=== PATIENT | male | born 1950 | race Two or more races ===

== ENCOUNTER 2018-05-26 07:59 | Day surgery (SDC) | payer OTHER ==
[~2018-05-26] VITALS: Ht 180.3 cm; Wt 119.3 kg
[~2018-05-26 07:59] MED LIST: ALBUPOW26 XX; ASPI81CH43 PO; ATOR40TA52 PO; CLOP75TA41 PO; DOXA4TAB40 PO; FENO160T8 PO; FINA5TAB4 PO; GABA300C10 PO; INSU75IN2 SC; LEVO100T8 PO; LISI40TA PO; NIFE90TA30 PO; NORT10SO PO; OMEP20TA44 PO
[2018-05-26] MEDS ORDERED: LIDOCAINE 2% (LOCAL ANESTH.) PF 5ml SDV ONE (09:35)
[2018-05-26] MEDS ORDERED: IODIXANOL 320MG/ML 100ML BTL IV ONE ×3 (09:36→10:10)
[2018-05-26] MEDS ORDERED: MIDAZOLAM HCL 1MG/1ML-2 ML VIAL ONE (09:48)
[2018-05-26] MEDS ORDERED: ANGIOMAX 250 MG VIAL IV ONE (09:48)
[2018-05-26] MEDS ORDERED: fentaNYL CITRATE 100 MCG/2 ML VL ONE (09:48)
[2018-05-26] MEDS ORDERED: SODIUM CHL 0.9% 50 ML ONE (09:48)
[2018-05-26] MEDS ORDERED: VERAPAMIL 2.5MG/ML INJ 2ML VIAL IV ONE (09:50)
== END 2018-05-26 14:25 | disposition home or self-care (01) ==
LOC: CATH 07:59
PROVIDERS: ATTEND Internal Medicine
DX: I70.92 Chronic total occlusion of artery of the extremities (principal); E66.9 Obesity, unspecified; I10 Essential (primary) hypertension; I65.29 Occlusion and stenosis of unspecified carotid artery; I50.30 Unspecified diastolic (congestive) heart failure; I77.9 Disorder of arteries and arterioles, unspecified; E11.22 Type 2 diabetes mellitus with diabetic chronic kidney disease; I13.0 Hypertensive heart and chronic kidney disease with heart failure and stage 1 through stage 4 chronic kidney disease, or unspecified chronic kidney disease; N18.9 Chronic kidney disease, unspecified; I25.119 Atherosclerotic heart disease of native coronary artery with unspecified angina pectoris; E78.5 Hyperlipidemia, unspecified; J45.909 Unspecified asthma, uncomplicated; Z68.36 Body mass index [BMI] 36.0-36.9, adult; Z83.3 Family history of diabetes mellitus; Z79.899 Other long term (current) drug therapy; Z86.73 Personal history of transient ischemic attack (TIA), and cerebral infarction without residual deficits; Z87.891 Personal history of nicotine dependence
CPT/HCPCS: 36247; 37224; 75710; 76937; 93005; C1769; C1887; C1894; J0583; J1644; J2250; J3010; J7030; Q9967; 99152; 99153; A6257; J2001

== ENCOUNTER 2021-08-23 12:39 | Inpatient (IN) | payer OTHER ==
[~2021-08-23] VITALS: Ht 180.3 cm; Wt 126.1 kg
[~2021-08-23 12:39] MED LIST changes: -CLOP75TA41 PO; +CLOP75TA70 PO; -DOXA4TAB40 PO; +DOXA4TAB6 PO; -LISI40TA PO; +LISI40TA11 PO; -NIFE90TA30 PO; +NIFE90TA49 PO
[2021-08-23] MEDS ORDERED: FUROSEMIDE 40 MG/4 ML VIAL IV ONE (13:15)
[2021-08-23 14:02] LABS: Basophils # (auto) 0 10 ^3/uL (0-0.2); Basophils % (auto) 0.7 % (0.0-2.0); Eosinophils # (auto) 0.2 10 ^3/uL (0-0.8); Eosinophils % (auto) 2.8 % (0.0-7.0); Hematocrit 39.6 % (41.0-53.0); Hemoglobin 12.9 g/dL (13.5-17.5); Mean Corpuscular Hemoglobin 30.6 pg (28.0-32.0); Mean Corpuscular Hgb Conc. 32.6 g/dL (32.0-36.0); Mean Corpuscular Volume 94.1 fL (80.0-100.0); Monocytes # (auto) 0.5 10 ^3/uL (0-1.3); Monocytes % (auto) 9.8 % (0.0-12.0); Neutrophils # (auto) 3.9 10 ^3/uL (1.6-8.6); Neutrophils % (auto) 68.7 % (37.0-80.0); Nucleated Red Blood Cells % 0.3 %; Red Blood Cells 4.21 10^6/uL (4.5-5.90); Red Cell Distribution Width 15.6 % (11.8-14.3); White Blood Cell 5.6 10^3/uL (4.4-10.8)
[2021-08-23 14:23] LABS: Albumin 3.5 g/dL (3.4-5.0); Calcium 9.2 mg/dL (8.5-10.1); Magnesium 2.2 mg/dL (1.6-2.6); Potassium 4.7 mmol/L (3.5-5.1)
[2021-08-23 14:27] LABS: BUN/Creatinine Ratio 16.9; Bilirubin, Total 0.4 mg/dL (0.2-1.0); Total Protein 6.8 g/dL (6.4-8.2)
[2021-08-23] MEDS ORDERED: NITROGLYCERIN 0.4 MG SL TAB SL PRN ×2 (19:30→20:15)
[2021-08-23] MEDS ORDERED: MORPHINE SULFATE INJECTION 2 MG/ML SYRG IV PRN ×3 (19:30→20:15)
[2021-08-23] MEDS ORDERED: DOCUSATE SOD 100 MG CAP PO PRN (20:15)
[2021-08-23] MEDS ORDERED: DEXTROSE (50%) 50ML SYRG IV PRN (20:15)
[2021-08-23] MEDS ORDERED: hydrALAZINE HCL 20 MG/ML VL IV PRN (20:15)
[2021-08-23] MEDS ORDERED: ALUM & MAG HYDROX-SIMETH LIQ(MAALOX) 30 ML PO PRN (20:15)
[2021-08-23] MEDS ORDERED: HYDROcodone-ACET 5/325MG TAB PO PRN (20:15)
[2021-08-23] MEDS ORDERED: LORazepam 0.5 MG TAB PO PRN (20:15)
[2021-08-23 21:02] LABS: Magnesium 2.1 mg/dL (1.6-2.6); Phosphorus 4.9 mg/dL (2.5-4.90)
[2021-08-23] MEDS ORDERED: cefTRIAXone 1GM/50ML D5W 50 ML IV ONE (21:15)
[2021-08-23] MEDS: SODIUM CHLOR 0.9% PF (SALINE LOCK) 10ML VIAL/SYR IV SCH (21:59)
[2021-08-23] MEDS ORDERED: CLINDAMYCIN 600MG IV 50 ML IV ONE (22:00)
[2021-08-23] MEDS ORDERED: METOCLOPRAMIDE HCL 5MG/ml INJ 2ml VIAL IV PRN (22:00)
[2021-08-23 22:20] LABS: Urine WBC None Seen /hpf (0 - 3)
[2021-08-23 22:24] LABS: Urine Bacteria NONE SEEN /hpf (None Seen); Urine Blood Negative /uL (Negative); Urine Hyaline Cast FEW /lpf (0 - 2); Urine Specific Gravity 1.007 (1.001-1.035)
[2021-08-23] MEDS: FAMOTIDINE (10MG/ML) 2ML VL IV SCH (22:37)
[2021-08-23] MEDS: DOXAZOSIN MESYL 2 MG TAB PO SCH (22:38)
[2021-08-23] MEDS: GABAPENTIN 300 MG CAP PO SCH (22:39)
[2021-08-23] MEDS: ATORVASTATIN 20 MG TAB PO SCH (22:39)
[2021-08-23] MEDS: ACCU-CHEK COMFORT CURVE STRIP VI SCH (22:39)
[2021-08-23] MEDS: InsuLIN REG 1unit/0.01ml Soln (100units/ml) SC SCH (22:40)
[2021-08-24] MEDS: CLINDAMYCIN 600MG IV 50 ML IV SCH ×3 (07:03→22:27)
[2021-08-24] MEDS: GABAPENTIN 300 MG CAP PO SCH ×3 (07:04→22:28)
[2021-08-24] MEDS: FUROSEMIDE 40 MG/4 ML VIAL IV SCH ×2 (07:04→18:07)
[2021-08-24] MEDS: SODIUM CHLOR 0.9% PF (SALINE LOCK) 10ML VIAL/SYR IV SCH ×3 (07:04→22:27)
[2021-08-24] MEDS: InsuLIN REG 1unit/0.01ml Soln (100units/ml) SC SCH ×4 (07:30→22:27)
[2021-08-24] MEDS: LEVOTHYROXINE SODIUM 100 MCG TAB PO SCH (07:30)
[2021-08-24] MEDS: ACCU-CHEK COMFORT CURVE STRIP VI SCH ×4 (07:30→22:16)
[2021-08-24] MEDS: ASPirin 81 mg TAB PO SCH (09:27)
[2021-08-24] MEDS: POTASSIUM CHL 20 Meq TABLET PO SCH (09:27)
[2021-08-24] MEDS: FINASTERIDE 5 MG TAB PO SCH (09:28)
[2021-08-24] MEDS ORDERED: ENOXAPARIN SOD 40 MG/0.4 ML SYRINGE SC SCH (10:00)
[2021-08-24] MEDS ORDERED: CLOPIDOGREL BISULFATE 75 MG TAB PO SCH (10:00)
[2021-08-24] MEDS ORDERED: BENAZEPRIL HCL 10 MG TAB PO SCH (10:00)
[2021-08-24 13:05] VITALS: BP 105/49
[2021-08-24 16:46] LABS: Basophils # (auto) 0 10 ^3/uL (0-0.2); Basophils % (auto) 0.7 % (0.0-2.0); Eosinophils # (auto) 0.2 10 ^3/uL (0-0.8); Eosinophils % (auto) 3.9 % (0.0-7.0); Hematocrit 41.4 % (41.0-53.0); Hemoglobin 13.6 g/dL (13.5-17.5); Lymphocytes # (auto) 0.9 10 ^3/uL (0.4-5.4); Lymphocytes % (auto) 17.3 % (10.0-50.0); Mean Corpuscular Hemoglobin 30.8 pg (28.0-32.0); Mean Corpuscular Hgb Conc. 32.8 g/dL (32.0-36.0); Mean Corpuscular Volume 93.8 fL (80.0-100.0); Monocytes # (auto) 0.5 10 ^3/uL (0-1.3); Monocytes % (auto) 9.3 % (0.0-12.0); Neutrophils # (auto) 3.7 10 ^3/uL (1.6-8.6); Neutrophils % (auto) 68.8 % (37.0-80.0); Nucleated Red Blood Cells % 0.1 %; Red Blood Cells 4.41 10^6/uL (4.5-5.90); Red Cell Distribution Width 15.3 % (11.8-14.3); White Blood Cell 5.4 10^3/uL (4.4-10.8)
[2021-08-24 16:56] VITALS: BP 135/82
[2021-08-24] MEDS ORDERED: CHLO50TA PO (17:00)
[2021-08-24] MEDS ORDERED: INS7030I SC ×2 (17:00)
[2021-08-24] MEDS ORDERED: DOXA4TAB6 PO (17:00)
[2021-08-24] MEDS ORDERED: BENA40TA8 PO (17:00)
[2021-08-24 17:07] LABS: BUN/Creatinine Ratio 17.4; Calcium 9.6 mg/dL (8.5-10.1); Potassium 5.2 mmol/L (3.5-5.1)
[2021-08-24 18:35] VITALS: BP 138/88
[2021-08-24] MEDS ORDERED: SODIUM ZIRCONIUM CYCL 10 GM PAK PO ONE (19:00)
[2021-08-24] MEDS: cefTRIAXone 1GM/50ML D5W 50 ML IV SCH (21:01)
[2021-08-24 22:00] VITALS: BP 139/83
[2021-08-24] MEDS: FAMOTIDINE (10MG/ML) 2ML VL IV SCH (22:27)
[2021-08-24] MEDS: APIXABAN 5 MG TAB PO SCH (22:27)
[2021-08-24] MEDS: DOXAZOSIN MESYL 2 MG TAB PO SCH (22:27)
[2021-08-24] MEDS: ATORVASTATIN 20 MG TAB PO SCH (22:28)
[2021-08-25 04:50] VITALS: BP 139/78
[2021-08-25] MEDS: FUROSEMIDE 40 MG/4 ML VIAL IV SCH ×2 (05:58→19:10)
[2021-08-25] MEDS: CLINDAMYCIN 600MG IV 50 ML IV SCH ×2 (05:58→14:06)
[2021-08-25] MEDS: SODIUM CHLOR 0.9% PF (SALINE LOCK) 10ML VIAL/SYR IV SCH ×3 (05:58→21:40)
[2021-08-25] MEDS: GABAPENTIN 300 MG CAP PO SCH ×3 (05:59→21:40)
[2021-08-25] MEDS: LEVOTHYROXINE SODIUM 100 MCG TAB PO SCH (06:00)
[2021-08-25] MEDS: InsuLIN REG 1unit/0.01ml Soln (100units/ml) SC SCH ×4 (06:10→21:40)
[2021-08-25] MEDS: ACCU-CHEK COMFORT CURVE STRIP VI SCH ×4 (06:10→21:36)
[2021-08-25 08:05] LABS: Basophils # (auto) 0 10 ^3/uL (0-0.2); Basophils % (auto) 0.6 % (0.0-2.0); Eosinophils # (auto) 0.2 10 ^3/uL (0-0.8); Eosinophils % (auto) 3.8 % (0.0-7.0); Hematocrit 39.9 % (41.0-53.0); Hemoglobin 13.2 g/dL (13.5-17.5); Lymphocytes # (auto) 1.2 10 ^3/uL (0.4-5.4); Lymphocytes % (auto) 20.7 % (10.0-50.0); Mean Corpuscular Hemoglobin 31.1 pg (28.0-32.0); Mean Corpuscular Hgb Conc. 33.2 g/dL (32.0-36.0); Mean Corpuscular Volume 93.6 fL (80.0-100.0); Monocytes # (auto) 0.7 10 ^3/uL (0-1.3); Monocytes % (auto) 12.1 % (0.0-12.0); Neutrophils # (auto) 3.7 10 ^3/uL (1.6-8.6); Neutrophils % (auto) 62.8 % (37.0-80.0); Nucleated Red Blood Cells % 0.1 %; Red Blood Cells 4.27 10^6/uL (4.5-5.90); Red Cell Distribution Width 15.2 % (11.8-14.3); White Blood Cell 5.8 10^3/uL (4.4-10.8)
[2021-08-25 08:08] LABS: Calcium 9.5 mg/dL (8.5-10.1); Potassium 4.4 mmol/L (3.5-5.1)
[2021-08-25 08:12] LABS: BUN/Creatinine Ratio 18.4
[2021-08-25 09:00] VITALS: BP 146/78
[2021-08-25] MEDS ORDERED: CLOPIDOGREL BISULFATE 75 MG TAB PO SCH (10:00)
[2021-08-25] MEDS ORDERED: NIFEdipine ER 30 MG TAB PO SCH (10:00)
[2021-08-25] MEDS: POTASSIUM CHL 20 Meq TABLET PO SCH (11:04)
[2021-08-25] MEDS: FINASTERIDE 5 MG TAB PO SCH (11:04)
[2021-08-25] MEDS: BENAZEPRIL HCL 10 MG TAB PO SCH (11:05)
[2021-08-25] MEDS: ASPirin 81 mg TAB PO SCH (11:06)
[2021-08-25] MEDS: APIXABAN 5 MG TAB PO SCH (13:07)
[2021-08-25 13:13] VITALS: BP 146/79
[2021-08-25] MEDS: DOPamine 1600MCG/ML D5W 250 ML IV SCH ×2 (15:54→16:46)
[2021-08-25 17:15] VITALS: BP 130/66
[2021-08-25] MEDS: AZITHROMYCIN 500MG/ 250ML 250 ML IV SCH (19:11)
[2021-08-25] MEDS: FAMOTIDINE (10MG/ML) 2ML VL IV SCH (21:40)
[2021-08-25] MEDS: cefTRIAXone 1GM/50ML D5W 50 ML IV SCH (21:40)
[2021-08-25] MEDS: ATORVASTATIN 20 MG TAB PO SCH (21:40)
[2021-08-25] MEDS: DOXAZOSIN MESYL 2 MG TAB PO SCH (21:50)
[2021-08-25 22:11] VITALS: BP 133/69
[2021-08-25] MEDS ORDERED: DOPamine 1600MCG/ML D5W 250 ML IV SCH (23:30)
[2021-08-26] VITALS (9 sets, daily range): BP systolic 120–157; BP diastolic 71–90
[2021-08-26 01:52] LABS: INR 1.12 (0.9-1.15); Partial Thromboplastin Time 26.8 sec (23.6-33.0)
[2021-08-26] MEDS: GABAPENTIN 300 MG CAP PO SCH ×3 (06:13→21:23)
[2021-08-26] MEDS: FUROSEMIDE 40 MG/4 ML VIAL IV SCH ×2 (06:13→17:48)
[2021-08-26] MEDS: LEVOTHYROXINE SODIUM 100 MCG TAB PO SCH (06:13)
[2021-08-26] MEDS: SODIUM CHLOR 0.9% PF (SALINE LOCK) 10ML VIAL/SYR IV SCH ×3 (06:13→21:22)
[2021-08-26] MEDS: InsuLIN REG 1unit/0.01ml Soln (100units/ml) SC SCH ×4 (06:14→21:25)
[2021-08-26] MEDS: ACCU-CHEK COMFORT CURVE STRIP VI SCH ×4 (06:14→21:23)
[2021-08-26 06:38] LABS: Basophils # (auto) 0.1 10 ^3/uL (0-0.2); Eosinophils # (auto) 0.3 10 ^3/uL (0-0.8); Eosinophils % (auto) 4.9 % (0.0-7.0); Hematocrit 42.9 % (41.0-53.0); Hemoglobin 13.5 g/dL (13.5-17.5); Lymphocytes # (auto) 1.2 10 ^3/uL (0.4-5.4); Lymphocytes % (auto) 20.2 % (10.0-50.0); Mean Corpuscular Hemoglobin 30.7 pg (28.0-32.0); Mean Corpuscular Hgb Conc. 31.4 g/dL (32.0-36.0); Mean Corpuscular Volume 97.9 fL (80.0-100.0); Monocytes # (auto) 0.7 10 ^3/uL (0-1.3); Monocytes % (auto) 11.1 % (0.0-12.0); Neutrophils # (auto) 3.8 10 ^3/uL (1.6-8.6); Neutrophils % (auto) 62.8 % (37.0-80.0); Nucleated Red Blood Cells % 0.2 %; Red Blood Cells 4.38 10^6/uL (4.5-5.90); Red Cell Distribution Width 15.6 % (11.8-14.3)
[2021-08-26 07:10] LABS: BUN/Creatinine Ratio 19.5; Calcium 9.9 mg/dL (8.5-10.1); Potassium 4.2 mmol/L (3.5-5.1)
[2021-08-26] MEDS: AZITHROMYCIN 500MG/ 250ML 250 ML IV SCH (09:19)
[2021-08-26] MEDS: ASPirin 81 mg TAB PO SCH (09:45)
[2021-08-26] MEDS: POTASSIUM CHL 20 Meq TABLET PO SCH (09:46)
[2021-08-26] MEDS: FINASTERIDE 5 MG TAB PO SCH (09:46)
[2021-08-26] MEDS: BENAZEPRIL HCL 10 MG TAB PO SCH (09:46)
[2021-08-26] MEDS ORDERED: VANCOMYCIN HCL 1000 MG VL ONE (14:16)
[2021-08-26] MEDS ORDERED: MIDAZOLAM HCL 2MG/2ML 2ml VIAL (1mg/ml) ONE (14:17)
[2021-08-26] MEDS ORDERED: fentaNYL CITRATE 100 MCG/2 ML VL ONE (14:17)
[2021-08-26] MEDS ORDERED: VANCOMYCIN 1GM/250ML 250 ML IV ONE (14:17)
[2021-08-26] MEDS ORDERED: diphenhdrAMINE HCL 50 MG/1 ML VL ONE (14:19)
[2021-08-26] MEDS ORDERED: LIDOCAINE 2%HCL (LOCAL ANESTH.) INJ 20ML MDV ONE (14:26)
[2021-08-26] MEDS ORDERED: FUROSEMIDE 20 MG/2 ML VIAL ONE (14:52)
[2021-08-26] MEDS ORDERED: HYDROcodone-ACET 5/325MG TAB PO PRN (15:45)
[2021-08-26] MEDS: TAMSULOSIN HYDROCHLORIDE 0.4 MG CAP PO SCH (18:02)
[2021-08-26] MEDS: FAMOTIDINE (10MG/ML) 2ML VL IV SCH (21:22)
[2021-08-26] MEDS: cefTRIAXone 1GM/50ML D5W 50 ML IV SCH (21:22)
[2021-08-26] MEDS: ATORVASTATIN 20 MG TAB PO SCH (21:23)
[2021-08-27 05:00] VITALS: BP 130/75
[2021-08-27 06:12] LABS: Basophils # (auto) 0 10 ^3/uL (0-0.2); Basophils % (auto) 0.6 % (0.0-2.0); Eosinophils # (auto) 0.2 10 ^3/uL (0-0.8); Eosinophils % (auto) 3.6 % (0.0-7.0); Hematocrit 42.2 % (41.0-53.0); Hemoglobin 14.1 g/dL (13.5-17.5); Lymphocytes % (auto) 16.4 % (10.0-50.0); Mean Corpuscular Hemoglobin 30.4 pg (28.0-32.0); Mean Corpuscular Hgb Conc. 33.3 g/dL (32.0-36.0); Mean Corpuscular Volume 91.3 fL (80.0-100.0); Monocytes # (auto) 0.6 10 ^3/uL (0-1.3); Monocytes % (auto) 10.1 % (0.0-12.0); Neutrophils # (auto) 4.2 10 ^3/uL (1.6-8.6); Neutrophils % (auto) 69.3 % (37.0-80.0); Nucleated Red Blood Cells % 0.1 %; Red Blood Cells 4.63 10^6/uL (4.5-5.90); Red Cell Distribution Width 14.8 % (11.8-14.3)
[2021-08-27] MEDS: FUROSEMIDE 40 MG/4 ML VIAL IV SCH ×2 (06:17→18:10)
[2021-08-27] MEDS: InsuLIN REG 1unit/0.01ml Soln (100units/ml) SC SCH ×4 (06:18→21:47)
[2021-08-27] MEDS: SODIUM CHLOR 0.9% PF (SALINE LOCK) 10ML VIAL/SYR IV SCH ×3 (06:19→21:45)
[2021-08-27] MEDS: GABAPENTIN 300 MG CAP PO SCH ×3 (06:19→21:46)
[2021-08-27] MEDS: LEVOTHYROXINE SODIUM 100 MCG TAB PO SCH (06:19)
[2021-08-27] MEDS: ACCU-CHEK COMFORT CURVE STRIP VI SCH ×4 (06:19→21:46)
[2021-08-27 06:28] LABS: BUN/Creatinine Ratio 19.6; Potassium 4.1 mmol/L (3.5-5.1)
[2021-08-27 09:00] VITALS: BP 115/56
[2021-08-27] MEDS: FINASTERIDE 5 MG TAB PO SCH (09:45)
[2021-08-27] MEDS: BENAZEPRIL HCL 10 MG TAB PO SCH (09:45)
[2021-08-27] MEDS: AZITHROMYCIN 500MG/ 250ML 250 ML IV SCH (09:45)
[2021-08-27] MEDS: POTASSIUM CHL 20 Meq TABLET PO SCH (09:45)
[2021-08-27] MEDS: ASPirin 81 mg TAB PO SCH (09:45)
[2021-08-27 12:00] VITALS: BP 108/60
[2021-08-27 12:47] VITALS: BP 108/60
[2021-08-27 16:43] VITALS: BP 140/78
[2021-08-27] MEDS: TAMSULOSIN HYDROCHLORIDE 0.4 MG CAP PO SCH (18:10)
[2021-08-27] MEDS: ALBUTEROL SULF 2.5 MG/0.5ML(0.5%) NEB SOLN NEB SCH ×2 (19:19→21:58)
[2021-08-27] MEDS: ACETYLCYSTEINE 10 %(100MG/ML) SOL 4ML NEB SCH ×2 (19:19→21:58)
[2021-08-27] MEDS: cefTRIAXone 1GM/50ML D5W 50 ML IV SCH (21:45)
[2021-08-27] MEDS: FAMOTIDINE (10MG/ML) 2ML VL IV SCH (21:45)
[2021-08-27] MEDS: ATORVASTATIN 20 MG TAB PO SCH (21:46)
[2021-08-27 22:00] VITALS: BP 139/70
[2021-08-28] MEDS: ALBUTEROL SULF 2.5 MG/0.5ML(0.5%) NEB SOLN NEB SCH ×4 (02:32→15:34)
[2021-08-28] MEDS: ACETYLCYSTEINE 10 %(100MG/ML) SOL 4ML NEB SCH ×4 (02:32→14:00)
[2021-08-28 05:00] VITALS: BP 110/70
[2021-08-28] MEDS: SODIUM CHLOR 0.9% PF (SALINE LOCK) 10ML VIAL/SYR IV SCH ×2 (06:15→13:55)
[2021-08-28] MEDS: FUROSEMIDE 40 MG/4 ML VIAL IV SCH (06:15)
[2021-08-28] MEDS: LEVOTHYROXINE SODIUM 100 MCG TAB PO SCH (06:16)
[2021-08-28] MEDS: GABAPENTIN 300 MG CAP PO SCH ×2 (06:16→13:55)
[2021-08-28] MEDS: ACCU-CHEK COMFORT CURVE STRIP VI SCH ×3 (06:17→17:17)
[2021-08-28] MEDS: InsuLIN REG 1unit/0.01ml Soln (100units/ml) SC SCH ×3 (06:17→17:18)
[2021-08-28 09:00] VITALS: BP 122/92
[2021-08-28] MEDS: AZITHROMYCIN 500MG/ 250ML 250 ML IV SCH (09:25)
[2021-08-28] MEDS: POTASSIUM CHL 20 Meq TABLET PO SCH (09:25)
[2021-08-28] MEDS: ASPirin 81 mg TAB PO SCH (09:25)
[2021-08-28] MEDS: FINASTERIDE 5 MG TAB PO SCH (09:26)
[2021-08-28] MEDS: BENAZEPRIL HCL 10 MG TAB PO SCH (09:26)
[2021-08-28 12:59] VITALS: BP 133/82
[2021-08-28] MEDS ORDERED: TAM04C PO (15:32)
[2021-08-28] MEDS ORDERED: AMIO200T33 PO (15:32)
[2021-08-28] MEDS ORDERED: FURO1TAB31 PO (15:32)
[2021-08-28] MEDS ORDERED: POTA-220 PO (15:32)
[2021-08-28 17:10] VITALS: BP 131/72
== END 2021-08-28 17:40 | disposition home health service (06) | DRG 242 ==
LOC: ER 12:39 → TELE 20:07 → TELE-WESTW 08-24 16:12
PROVIDERS: ADMIT Hospitalist; ATTEND Internal Medicine
PROC: 5A09357 Assistance with Respiratory Ventilation, Less than 24 Consecutive Hours, Continuous Positive Airway Pressure (ICD-10-PCS; 2021-08-24)
PROC: 5A09357 Assistance with Respiratory Ventilation, Less than 24 Consecutive Hours, Continuous Positive Airway Pressure (ICD-10-PCS; 2021-08-24)
PROC: 5A09357 Assistance with Respiratory Ventilation, Less than 24 Consecutive Hours, Continuous Positive Airway Pressure (ICD-10-PCS; 2021-08-25)
PROC: 0JH606Z Insertion of Pacemaker, Dual Chamber into Chest Subcutaneous Tissue and Fascia, Open Approach (ICD-10-PCS; principal; 2021-08-26)
PROC: 02H63JZ Insertion of Pacemaker Lead into Right Atrium, Percutaneous Approach (ICD-10-PCS; 2021-08-26)
PROC: 02HK3JZ Insertion of Pacemaker Lead into Right Ventricle, Percutaneous Approach (ICD-10-PCS; 2021-08-26)
PROC: 5A09357 Assistance with Respiratory Ventilation, Less than 24 Consecutive Hours, Continuous Positive Airway Pressure (ICD-10-PCS; 2021-08-26)
PROC: 5A09357 Assistance with Respiratory Ventilation, Less than 24 Consecutive Hours, Continuous Positive Airway Pressure (ICD-10-PCS; 2021-08-27)
PROC: 5A09357 Assistance with Respiratory Ventilation, Less than 24 Consecutive Hours, Continuous Positive Airway Pressure (ICD-10-PCS; 2021-08-28)
DX: I49.5 Sick sinus syndrome (principal); J96.21 Acute and chronic respiratory failure with hypoxia; J18.9 Pneumonia, unspecified organism; I50.23 Acute on chronic systolic (congestive) heart failure; I48.19 Other persistent atrial fibrillation; N18.4 Chronic kidney disease, stage 4 (severe); I13.0 Hypertensive heart and chronic kidney disease with heart failure and stage 1 through stage 4 chronic kidney disease, or unspecified chronic kidney disease; J98.11 Atelectasis; N17.9 Acute kidney failure, unspecified; Z68.41 Body mass index [BMI] 40.0-44.9, adult; I48.92 Unspecified atrial flutter; Z20.822 Contact with and (suspected) exposure to COVID-19; E66.01 Morbid (severe) obesity due to excess calories; K29.70 Gastritis, unspecified, without bleeding; K21.9 Gastro-esophageal reflux disease without esophagitis; E11.51 Type 2 diabetes mellitus with diabetic peripheral angiopathy without gangrene; E11.65 Type 2 diabetes mellitus with hyperglycemia; I25.10 Atherosclerotic heart disease of native coronary artery without angina pectoris; E03.9 Hypothyroidism, unspecified; E11.22 Type 2 diabetes mellitus with diabetic chronic kidney disease; E11.42 Type 2 diabetes mellitus with diabetic polyneuropathy; N39.43 Post-void dribbling; E11.21 Type 2 diabetes mellitus with diabetic nephropathy; E78.5 Hyperlipidemia, unspecified; N40.1 Benign prostatic hyperplasia with lower urinary tract symptoms; Z79.4 Long term (current) use of insulin; Z79.02 Long term (current) use of antithrombotics/antiplatelets; Z79.899 Other long term (current) drug therapy; Z79.82 Long term (current) use of aspirin
CPT/HCPCS: 33208; 36415; 71045; 71250; 76775; 80048; 80053; 81001; 82962; 83036; 83735; 83880; 83970; 84100; 84443; 84484; 85025; 85610; 85730; 86850; 86900; 86901; 87040; 87086; 87426; 93005; 93306; 94640; 94660; 96365; 96368; 96372; 96375; 99152; 99153; 99291; C1785; G0378; J0696; J1815; J2250; J3490

== ENCOUNTER 2024-11-29 10:13 | Inpatient (IN) | payer OTHER ==
[~2024-11-29] VITALS: Ht 180.3 cm; Wt 106.3 kg
[~2024-11-29 10:13] MED LIST changes: +AMIO200T33 PO; +AMLO1TAB22 PO; +BENA40TA71 PO; +CARV3.1240 PO; -DOXA4TAB6 PO; +DOXA4TAB83 PO; +EMPA1TAB PO; +FENO160T PO; -FENO160T8 PO; +FURO1TAB31 PO; +FURO40TA4 PO; +GABA-1250 PO; -GABA300C10 PO; +INS7030I SC; +LEVO112T4 PO; -LISI40TA11 PO; -NIFE90TA49 PO; +OMEP-448 PO; +POTA-180 PO; +POTA-220 PO; +TAMS-35 PO
--- NOTE | 2024-11-29 11:06 | ED.PDOC ---
HPI Comments 73 y/o M, with PMHX of LA, CVA, HTN, DM, and HLD presents to the ED for CC of chest pain. Patient states, that he has been experiencing chest pain with associated symptoms of testicular swelling, bilateral leg swelling, and shortness of breath since yesterday (11/28/24). Patient relays, that he did follow up with his PCP yesterday (11/28/24) ; following stent placement in [place] of September 2024 for a myocardial infraction. Patient comments on, PCP relaying him to follow up with the ED for a further work up. Patient denies social history. Patient denies fever, chills, body aches, or N/V/D. No new symptoms or modifying factors at this time. Chief Complaint: Chest Pain Time Seen by MD: 10:30 Primary Care Provider: NURY Reviewed Notes: Nurses Notes, Medications, Allergies Allergies: Coded Allergies: NO KNOWN ALLERGIES (Unverified , 05/07/18) Home Meds Active Scripts Furosemide (Lasix) 40 Mg Tab, 40 MG PO DAILY, #30 MG Prov:FARHAN MCKINNEY MD 08/28/21 Amiodarone Hcl (Amiodarone Hcl) 200 Mg Tab, 200 MG PO DAILY, #30 MG Prov:FARHAN MCKINNEY MD 08/28/21 Tamsulosin Hcl (Flomax) 0.4 Mg Cap, 0.4 MG PO QPM, #30 CAP Prov:FARHAN MCKINNEY MD 08/28/21 Potassium Chloride (Klor-Con M20) 20 Meq Tab, 20 MEQ PO DAILY, #30 TAB Prov:FARHAN MCKINNEY MD 08/28/21 Reported Medications Benazepril Hcl (Benazepril Hcl) 40 Mg Tab, 40 MG PO DAILY for 30 Days, MG 08/24/21 Insulin Isophane & Reg (Human) (Humulin 70/30 (70-30) 100 Unit/ml) 1 Units/0.01 Ml Inj, 40 UNITS SC HS, INJ 08/24/21 Doxazosin Mesylate (Doxazosin Mesylate) 4 Mg Tab, 8 MG PO HS for 30 Days, MG 08/24/21 Insulin Lispro Protamine & Lis (Humalog Mix 75/25 Kwikpen) 75 Mg/25 Kwp Inj, 60 MG SC QPM, INJ 05/07/18 Nortriptyline HCl (Nortriptyline Hydrochlori) 10 Mg/5 Ml Sonali, 20 MG PO HS 05/07/18 Albuterol (Albuterol) Pow, 1 XX, POW 09/10/15 Omeprazole (Cvs Omeprazole) 20 Mg Tab, 40 MG PO DAILY, #2 TAB 09/10/15 Finasteride (Finasteride) 5 Mg Tab, 1 TAB PO DAILY, #30 TAB 11 Refills 09/10/15 Fenofibrate (Fenofibrate) 160 Mg Tab, 1 TAB PO DAILY, #30 TAB 5 Refills 09/10/15 Aspirin (Asa) 81 Mg Ch, 81 MG PO DAILY 09/10/15 Gabapentin (Gabapentin) 300 Mg Cap, 1 CAP PO TID, #90 CAP 5 Refills 09/10/15 Atorvastatin Calcium (ATORVASTATIN CALCIUM) 40 Mg Tab, 1 TAB PO QPM, #90 TAB 3 Refills 09/10/15 Levothyroxine Sodium (Levothyroxine Sodium) 100 Mcg Tab, 100 MCG PO QAM for 30 Days, MCG 09/10/15 Information Source: Patient, Significant Other Mode of Arrival: Wheelchair Severity: Moderate Timing: Hours Duration: Since onset Prehospital treatment: None Location: Substernal Radiation: No Radiation Quality: Pressure Onset: At Rest Cardiac Risk Factors: Hyperlipidemia, HTN, Diabetes PE Risk Factors: None History of: LA Modifying Factors: Nothing Associated Signs and Symptoms: SOB Past Medical History PAST MEDICAL HISTORY: CVA, DM, HTN, LA Surgical History: PTCA Family History Family History: Reviewed,noncontributory to illness Social History Smoker: Non-Smoker Alcohol: Denies ETOH Use Drugs: Denies Drug Use Lives In: Home Constitutional: denies: chills, diaphoresis, fatigue, fever, malaise, sweats, weakness, others EENTM: denies: blurred vision, double vision, ear bleeding, ear discharge, ear drainage, ear pain, ear ringing, eye pain, eye redness, hearing loss, mouth pain, mouth swelling, nasal discharge, nose bleeding, nose congestion, nose pain, photophobia, tearing, throat pain, throat swelling, voice changes, others Respiratory: reports: shortness of breath; denies: cough, hemoptysis, orthop estefania, SOB at rest, SOB with excertion, stridor, wheezing, others Cardiovascular: reports: chest pain; denies: dizzy spells, diaphoresis, Dyspnea on exertion, edema, irregular heart beat, left arm pain, lightheadedness, palpitations, PND, syncope, others Gastrointestinal: denies: abdomen distended, abdominal pain, blood streaked bowels, constipated, diarrhea, dysphagia, difficulty swallowing, hematemesis, melena, nausea, poor appetite, poor fluid intake, rectal bleeding, rectal pain, vomiting, others Genitourinary: reports: testicle pain, testicle swelling; denies: burning, dysuria, flank pain, frequency, hematuria, incontinence, penile discharge, penile sore, pain, urgency, others Neurological: denies: dizziness, fainting, headache, left sided numbness, left sided weakness, numbness, paresthesia, pre-existing deficit, right sided numbness, right sided weakness, seizure, speech problems, tingling, tremors, weakness, others Musculoskeletal: denies: back pain, gout, joint pain, joint swelling, muscle pain, muscle stiffness, neck pain, others Integumetry: denies: bruises, change in color, change in hair/nails, dryness, laceration, lesions, lumps, rash, wounds, others Allergic/Immunocompromised: denies: Difficulty Healing, Frequent Infections, Hives, Itching, others Hematologic/Lymphatic: denies: anemia, blood clots, easy bleeding, easy bruising, swollen glands, others Endocrine: denies: excessive hunger, excessive sweating, excessive thirst, excessive urination, flushing, intolerance to cold, intolerance to heat, unexplained weight gain, unexplained weight loss, others Psychiatric: denies: anxiety, bipolar disorder, depression, hopeless, panic disorder, schizophrenia, sleepless, suicidal, others All Other Systems: Reviewed and Negative Physical Exam General Appearance: Moderate Distress HEENT: Normal ENT Inspection, Pharynx Normal, TMs Normal Neck: Full Range of Motion, Non-Tender, Normal, Normal Inspection Respiratory: Chest Non-Tender, Lungs Clear, No Accessory Muscle Use, No Respiratory Distress, Normal Breath Sounds Cardiovascular: No Edema, No JVD, No Murmur, No Gallop, Normal Peripheral Pulses, Regular Rate/Rhythm Breast Exam: Deferred Gastrointestinal: No Organomegaly, Non Tender, No Pulsatile Mass, Normal Bowel Sounds, Soft Genitalia: Scrotum (Swelling) Pelvic: Deferred Rectal: Deferred Extremities: Pedal edema Musculoskeletal : Apperance: Normal Neurologic: Alert Cerebellar Function: NOT DONE Reflexes: NOT DONE Skin: Normal Color Peripheral Pulses: 3+ Radial (R), 3+ Radial (L) Lymphatic: No Adenopathy Was a procedure done? Was a procedure done?: No CP Differential Dx Differential Diagnosis: A-fib, A-Flutter, Angina, Anxiety / Panic Attack, Atrial Dysrhythmia, Electrolyte Disorder Differential Diagnosis: CHF, HTN Essential Differential Diagnosis: Angina, Chest Wall Pain, Costochondritis, Myocardial Infarction X-Ray, Labs, Meds, VS Vital Signs Date Time Temp Pulse Resp B/P (MAP) Pulse Ox O2 Delivery O2 Flow Rate FiO2 11/29/24 10:39 93 11/29/24 10:28 97.7 96 18 104/59 (74) 94 Lab Test 11/29/24 11:37 11/29/24 10:43 Range/Units Troponin I High Sensitivity 20 21 </=54 ng/L White Blood Count 8.9 4.4-10.8 10^3/uL Red Blood Count 3.92 L 4.5-5.90 10^6/uL Hemoglobin 11.2 L 13.5-17.5 g/dL Hematocrit 34.1 L 41.0-53.0 % Mean Corpuscular Volume 87.0 80.0-100.0 fL Mean Corpuscular Hemoglobin 28.6 28.0-32.0 pg Mean Corpuscular Hemoglobin Concent 32.8 32.0-36.0 g/dL Red Cell Distribution Width 19.3 H 11.8-14.3 % Platelet Count 289 140-450 10^3/uL Mean Platelet Volume 7.4 6.9-10.8 fL Neutrophils (%) (Auto) 76.6 37.0-80.0 % Lymphocytes (%) (Auto) 13.8 10.0-50.0 % Monocytes (%) (Auto) 6.8 0.0-12.0 % Eosinophils (%) (Auto) 2.0 0.0-7.0 % Basophils (%) (Auto) 0.8 0.0-2.0 % Neutrophils # (Auto) 6.8 1.6-8.6 10 ^3/uL Lymphocytes # (Auto) 1.2 0.4-5.4 10 ^3/uL Monocytes # (Auto) 0.6 0-1.3 10 ^3/uL Eosinophils # (Auto) 0.2 0-0.8 10 ^3/uL Basophils # (Auto) 0.1 0-0.2 10 ^3/uL Nucleated Red Blood Cells 0.2 % Sodium Level 138 136-145 mmol/L Potassium Level 4.9 3.5-5.1 mmol/L Chloride Level 105 98-107 mmol/L Carbon Dioxide Level 27 20-31 mmol/L Anion Gap 6 5-15 Blood Urea Nitrogen 42 H 9-23 mg/dL Creatinine 2.57 H 0.700-1.30 mg/dL Glomerular Filtration Rate Calc 26 >90 mL/min BUN/Creatinine Ratio 16.3 10.0-20.0 Serum Glucose 111 H 74-106 mg/dL Calcium Level 9.8 8.7-10.4 mg/dL Total Bilirubin 0.3 0.2-1.0 mg/dL Aspartate Amino Transferase (AST) 20 13-40 U/L Alanine Aminotransferase (ALT) 21 7-40 U/L Alkaline Phosphatase 66 46-116 U/L B-Type Natriuretic Peptide 1068.77 0-100 pg/mL Total Protein 6.7 5.7-8.2 g/dL Albumin 3.9 3.2-4.8 g/dL [place] [id number] Ph: [phone] DIAGNOSTIC IMAGING Diagnostic Imaging Report : [id number] Signed PATIENT: FARHAN PERRY RACCT: [id number] UNIT: [id number] : 1950 LOC: ER ROOM / BED: / AGE / SEX: 73 / M ADM STATUS: REG ER SERVICE 1030 ORDERING PHYSICIAN: CIARAN INGRAM MD PROCEDURE(s): CXR2 - CHEST TWO VIEWS ROUTINE REASON: SOB, CP ORDER NUMBER(s): [id number], ACCESSION NUMBER(s): [id number] EXAM: XY CHEST TWO VIEWS ROUTINE CLINICAL HISTORY: SOB, CP COMPARISON: None TECHNIQUE: Frontal and lateral view of the chest was obtained FINDINGS: Lines and Tubes: Cardiac pacemaker projects over the left chest wall. Lungs: Elevation of the right hemidiaphragm with right basilar atelectasis. Pleura: No effusion. No pneumothorax. Cardiomediastinal contours: Unremarkable Bones: No acute osseous abnormality. IMPRESSION: Elevation of the right hemidiaphragm with right basilar atelectasis. ATED BY: KRISHAN RAO MD DICTATED DATE/TIME: 11/29/24 1132 SIGNED BY: KRISHAN RAO MD SIGNED DATE/TIME: 11/29/24 1132 CC: Patient alert. Complaining of chest pain. Chronic condition. Vitals stable. Chest x-ray reviewed does not show any acute changes. EKG reviewed does not show any acute changes. Was given aspirin. He does have swelling from possible diastolic heart failure. Explained to the patient. Continue cardiac monitoring. Time of 1ST Reevaluation: 11:00 Reevaluation 1ST: Unchanged Patient Education/Counseling: Diagnosis, Treatment Family Education/Counseling: No Family Present Additional Information I reviewed the following notes from patient's past medical encounters: 08/23/21 DX: ACUTE PNA The following tests were ordered, and results were reviewed by me: CBC, CMP, TRO PONIN X3, EKG X3, B-TYPE NATRIURETIC, CXR Additional Information was gathered from interviewing the following independent historians: FAMILY I reviewed and agreed with the following test results read by other providers: CXR I discussed treatment and results with medical personnel and: FAMILY Departure 1 Departure Time of Disposition: 12:45 Impression: Primary Impression: Diastolic heart failure Qualified Codes: I50.33 - Acute on chronic diastolic (congestive) heart failure Additional Impressions: Benign prostatic hyperplasia (BPH) with post-void dribbling Chest pain of unknown etiology Disposition: ADMITTED INPATIENT Admit to: Med Surg Condition: Guarded Critical Care Note Critical Care Time?: No Stability Stability form required: No Heart Score Heart Score: Heart Score Response (Comments) Value History Slightly Suspicious 0 EKG Normal 0 Age >65 2 Risk Factors >3 or Hx ASHD 2 Troponin Normal limit 0 Total 4 I personally scribed for CIARAN INGRAM MD ([email or web address]) on 11/29/24 at 11:06. Electronically submitted by Maribel Park ([email or web address]). I personally scribed for CIARAN INGRAM MD ([email or web address]) on 11/29/24 at 11:44. Electronically submitted by Maribel Park ([email or web address]). I personally scribed for CAIRAN INGRAM MD ([email or web address]) on 11/29/24 at 11:50. Electronically submitted by Maribel Park ([email or web address]). I personally scribed for CIARAN INGRAM MD ([email or web address]) on 11/29/24 at 12:05. Electronically submitted by Maribel Park ([email or web address]). CIARAN INGRAM MD Nov 29, 2024 11:06
[2024-11-29 11:17] LABS: Basophils # (auto) 0.1 10 ^3/uL (0-0.2); Basophils % (auto) 0.8 % (0.0-2.0); Eosinophils # (auto) 0.2 10 ^3/uL (0-0.8); Hematocrit 34.1 % (41.0-53.0); Hemoglobin 11.2 g/dL (13.5-17.5); Lymphocytes # (auto) 1.2 10 ^3/uL (0.4-5.4); Lymphocytes % (auto) 13.8 % (10.0-50.0); Mean Corpuscular Hemoglobin 28.6 pg (28.0-32.0); Mean Corpuscular Hgb Conc. 32.8 g/dL (32.0-36.0); Monocytes # (auto) 0.6 10 ^3/uL (0-1.3); Monocytes % (auto) 6.8 % (0.0-12.0); Neutrophils # (auto) 6.8 10 ^3/uL (1.6-8.6); Neutrophils % (auto) 76.6 % (37.0-80.0); Nucleated Red Blood Cells % 0.2 %; Platelet Count (auto) 289 10^3/uL (140-450); Red Blood Cells 3.92 10^6/uL (4.5-5.90); Red Cell Distribution Width 19.3 % (11.8-14.3); White Blood Cell 8.9 10^3/uL (4.4-10.8)
--- NOTE | 2024-11-29 11:33 | DVH ---
EXAM: XY CHEST TWO VIEWS ROUTINE CLINICAL HISTORY: SOB, CP COMPARISON: None TECHNIQUE: Frontal and lateral view of the chest was obtained FINDINGS: Lines and Tubes: Cardiac pacemaker projects over the left chest wall. Lungs: Elevation of the right hemidiaphragm with right basilar atelectasis. Pleura: No effusion. No pneumothorax. Cardiomediastinal contours: Unremarkable Bones: No acute osseous abnormality. IMPRESSION: Elevation of the right hemidiaphragm with right basilar atelectasis.
[2024-11-29 11:44] LABS: Alanine Aminotransferase 21 U/L (7-40); Albumin 3.9 g/dL (3.2-4.8); Alkaline Phosphatase 66 U/L (46-116); Aspartate Aminotransferase 20 U/L (13-40); BUN/Creatinine Ratio 16.3 (10.0-20.0); Calcium 9.8 mg/dL (8.7-10.4); Carbon Dioxide 27 mmol/L (20-31); Potassium 4.9 mmol/L (3.5-5.1); Sodium 138 mmol/L (136-145)
[2024-11-29 11:45] LABS: Bilirubin, Total 0.3 mg/dL (0.2-1.0); Blood Urea Nitrogen 42 mg/dL (9-23); Glucose 111 mg/dL (74-106); Total Protein 6.7 g/dL (5.7-8.2)
[2024-11-29 12:05] LABS: Anion Gap 6 (5-15); Chloride 105 mmol/L (98-107)
[2024-11-29 16:15] VITALS: PULSE 103; RESP 18; O2SAT 96
[2024-11-29] MEDS ORDERED: NITROGLYCERIN 0.4 MG SL TAB SL PRN (16:15)
[2024-11-29] MEDS ORDERED: MORPHINE SULFATE INJ 2 MG/ml SYRG IV PRN ×2 (16:15)
[2024-11-29] MEDS ORDERED: ONDANSETRON HCL 4 MG/2 ML VIAL IV PRN (16:15)
[2024-11-29] MEDS ORDERED: HYDROcodone-ACET 5/325MG TAB PO PRN (16:15)
[2024-11-29] MEDS: ACETAMINOPHEN 325 MG TAB PO PRN (16:25)
[2024-11-29] MEDS: FUROSEMIDE 40 MG/4 ML VIAL IV SCH (16:28)
--- NOTE | 2024-11-29 17:01 | DVHHP2 ---
History of Present Illness Reason for Visit: Patient was sent by Nephrology for chest pain and leg swelling and scr History of Present Illness 73-year-old male with a known history of congestive heart failure diastolic dysfunction, status post pacemaker placement, coronary artery disease status post PCI, hypertension, insulin-dependent diabetes mellitus type 2, peripheral neuropathy, BPH, hypothyroidism who initially presented to the hospital with melody rtness of breaths chest pain has been as scrotal swelling. Patient was seen by Nephrology and was sent to ER. Patient and patient was told me that he has leg swelling which is worsening for last three days along with dyspnea on minimal exertion. Also complaining of intermittent chest pain as well. Patient was denying any fever chills cough or phlegm. 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 Allergies: Coded Allergies: NO KNOWN ALLERGIES (Unverified , 05/07/18) Medications Current Medications Medications Dose Ordered Sig/Staci Route Start Time Stop Time Status Last Admin Dose Admin Acetaminophen/ Hydrocodone Bitart 1 tab Q4HP PRN PO 11/29/24 16:15 Ondansetron HCl 4 mg Q4HP PRN IV 11/29/24 16:15 Acetaminophen 650 mg Q6HP PRN PO 11/29/24 16:15 11/29/24 16:25 650 MG Morphine Sulfate 2 mg Q4HPRN PRN IV 11/29/24 16:15 Nitroglycerin 0.4 mg Q5MINP PRN SL 11/29/24 16:15 Morphine Sulfate 2 mg Q30M PRN IV 11/29/24 16:15 Furosemide 40 mg BIDD IV 11/29/24 16:15 11/29/24 16:28 40 MG Amiodarone HCl 200 mg DAILY PO 11/30/24 10:00 UNV Aspirin 81 mg DAILY PO 11/30/24 10:00 UNV Finasteride 5 mg DAILY PO 11/30/24 10:00 UNV Insulin Human Isoph/Insulin Regular 40 units HS SC 11/29/24 22:00 UNV Levothyroxine Sodium 100 mcg QAM PO 11/30/24 07:00 UNV Tamsulosin HCl 0.4 mg QPM PO 11/29/24 18:00 UNV Patient Own Medication 1 tab QPM PO 11/29/24 18:00 UNV Patient Own Medication 8 mg HS PO 11/29/24 22:00 UNV Patient Own Medication 1 tab DAILY PO 11/30/24 10:00 UNV Patient Own Medication 20 mg HS PO 11/29/24 22:00 UNV Patient Own Medication 40 mg DAILY PO 11/30/24 10:00 UNV Exam Vital Signs Vital Signs Date Time Temp Pulse Resp B/P (MAP) Pulse Ox O2 Delivery O2 Flow Rate FiO2 11/29/24 16:42 97.2 83 19 97/57 (70) 95 97.2 11/29/24 16:15 Room Air* 0 21 Exam HEENT pupils are reactive Neck is supple CV is S1-S2 regular rate and rhythm Rubs. Bilateral basal crackles GI posterior bowel sound Extremity 2+ pitting edema ELECTRICAL/INSTRUMENT TECHNICIAN no motor deficit Labs/Xrays Labs Test 11/29/24 13:46 11/29/24 10:43 Range/Units Troponin I High Sensitivity 20 </=54 ng/L White Blood Count 8.9 4.4-10.8 10^3/uL Red Blood Count 3.92 L 4.5-5.90 10^6/uL Hemoglobin 11.2 L 13.5-17.5 g/dL Hematocrit 34.1 L 41.0-53.0 % Mean Corpuscular Volume 87.0 80.0-100.0 fL Mean Corpuscular Hemoglobin 28.6 28.0-32.0 pg Mean Corpuscular Hemoglobin Concent 32.8 32.0-36.0 g/dL Red Cell Distribution Width 19.3 H 11.8-14.3 % Platelet Count 289 140-450 10^3/uL Mean Platelet Volume 7.4 6.9-10.8 fL Neutrophils (%) (Auto) 76.6 37.0-80.0 % Lymphocytes (%) (Auto) 13.8 10.0-50.0 % Monocytes (%) (Auto) 6.8 0.0-12.0 % Eosinophils (%) (Auto) 2.0 0.0-7.0 % Basophils (%) (Auto) 0.8 0.0-2.0 % Neutrophils # (Auto) 6.8 1.6-8.6 10 ^3/uL Lymphocytes # (Auto) 1.2 0.4-5.4 10 ^3/uL Monocytes # (Auto) 0.6 0-1.3 10 ^3/uL Eosinophils # (Auto) 0.2 0-0.8 10 ^3/uL Basophils # (Auto) 0.1 0-0.2 10 ^3/uL Nucleated Red Blood Cells 0.2 % Sodium Level 138 136-145 mmol/L Potassium Level 4.9 3.5-5.1 mmol/L Chloride Level 105 98-107 mmol/L Carbon Dioxide Level 27 20-31 mmol/L Anion Gap 6 5-15 Blood Urea Nitrogen 42 H 9-23 mg/dL Creatinine 2.57 H 0.700-1.30 mg/dL Glomerular Filtration Rate Calc 26 >90 mL/min BUN/Creatinine Ratio 16.3 10.0-20.0 Serum Glucose 111 H 74-106 mg/dL Calcium Level 9.8 8.7-10.4 mg/dL Total Bilirubin 0.3 0.2-1.0 mg/dL Aspartate Amino Transferase (AST) 20 13-40 U/L Alanine Aminotransferase (ALT) 21 7-40 U/L Alkaline Phosphatase 66 46-116 U/L B-Type Natriuretic Peptide 1068.77 0-100 pg/mL Total Protein 6.7 5.7-8.2 g/dL Albumin 3.9 3.2-4.8 g/dL Assessment/Plan Assessment/Plan 73-year-old male with a known history of congestive heart failure diastolic dysfunction, status post pacemaker placement, coronary artery disease status post PCI, hypertension, insulin-dependent diabetes mellitus type 2, peripheral neuropathy, BPH, hypothyroidism who initially presented to the hospital with shortness of breaths chest pain has been as scrotal swelling. Patient was seen by Nephrology and was sent to ER found to have 1. Acute on chronic congestive heart failure exacerbation with a likely diastolic dysfunction 2. Bilateral leg swelling and scrotal swelling secondary to acute CHF exacerbation 3. Status post pacemaker placement 4. Insulin-dependent diabetes mellitus type 2 5. Peripheral neuropathy 6. BPH 8. Hypothyroidism 9. Acute kidney injury with underlying CKD. -IV diuretics, resume home medication, 2D echo cardiology consultation. -nephrology consultation. Hold benazepril. Plan discussed with: Patient My Orders Orders - ALDEN RENTERIA MD Procedure Category Date Status Time Admit ADMIT 11/29/24 Transmitted 16:05 Code Status CODE 11/29/24 Transmitted 16:05 Renal DIET 11/29/24 Transmitted Standard(2gna,3gk,Lopho) Dinner Hydrocodone-Acet PHA 11/29/24 In Process 5/325mg Tab ([place] 16:15 Ondansetron Hcl PHA 11/29/24 In Process (Zofran) 16:15 Complete Blood Count LAB 11/30/24 Verified 04:00 Comprehensive LAB 11/30/24 Verified Metabolic Panel 04:00 Pt Request For Service PT 11/29/24 Logged 16:05 Echo 2d Mode Cardiac US 11/29/24 Logged DOP 16:05 Condition: Fair ALEXI 11/29/24 In Process 16:05 Acetaminophen Tablet PHA 11/29/24 In Process (Tylenol Tablet) 16:15 Morphine Sulfate PHA 11/29/24 In Process Injection 16:15 Nitroglycerin PHA 11/29/24 In Process Sublingual (Ntrostat 16:15 Morphine Sulfate PHA 11/29/24 In Process Injection 16:15 Stat Ekg For Chest ALEXI 11/29/24 In Process Pain 16:05 Notify Md Of Changes ALEXI 11/29/24 In Process From Base 16:05 County Supervisor For ALEXI 11/29/24 In Process 24 Hours 16:05 Emergency Dysrhythmia ALEXI 11/29/24 In Process Protocol 16:05 Rhythm Strips Once ALEXI 11/29/24 In Process Every Shift 16:05 Oxygen By Nasal RT 11/29/24 Transmitted Cannula 16:05 Furosemide Injection PHA 11/29/24 In Process (Lasix Injection) 16:15 Amiodarone Tablet PHA 11/30/24 Logged (Cordarone Tablet) 10:00 Aspirin Tablet PHA 11/30/24 Logged 10:00 Finasteride Tablet PHA 11/30/24 Logged (Proscar Tablet) 10:00 Insulin 70/30 (Human) PHA 11/29/24 Logged (Humulin 70/30) 22:00 Levothyroxine Tablet PHA 11/30/24 Logged (Synthroid Tablet) 07:00 Tamsulosin PHA 11/29/24 Logged Hydrochloride (Flomax) 18:00 (Nf) Atorvastatin PHA 11/29/24 Logged Calcium 18:00 (Nf) Doxazosin PHA 11/29/24 Logged Mesylate 22:00 (Nf) Fenofibrate PHA 11/30/24 Logged 10:00 (Nf) Nortriptyline PHA 11/29/24 Logged Hcl (Nortriptyline Hy 22:00 (Nf) Omeprazole (Cvs PHA 11/30/24 Logged Omeprazole) 10:00 Date of Service: Nov 29, 2024 Billing Provider: ALDEN RENTERIA MD Common Visit Codes: NOT BILLABLE ALDEN RENTERIA MD Nov 29, 2024 17:01
[2024-11-29 19:19] VITALS: PULSE 95; RESP 18; O2SAT 94
[2024-11-29] MEDS: TAMSULOSIN HYDROCHLORIDE 0.4 MG CAP PO SCH (19:27)
[2024-11-29 22:50] VITALS: PULSE 71; RESP 18; O2SAT 94
[2024-11-29] MEDS: DOXAZOSIN MESYL 2 MG TAB PO SCH (23:33)
[2024-11-29] MEDS: NORTRIPTYLINE 10 MG/5 ML PO SCH (23:34)
[2024-11-29] MEDS: ATORVASTATIN 20 MG TAB PO SCH (23:34)
[2024-11-29] MEDS: INSULIN 70/30 1unit/0.01ml Susp (100units/ml) SC SCH (23:41)
[2024-11-30] VITALS (8 sets, daily range): BP systolic 104–138; BP diastolic 44–72; PULSE 69–106; RESP 18–20; TEMP 97.8–98.8; O2SAT 85–97
[2024-11-30] MEDS: LEVOTHYROXINE SODIUM 100 MCG TAB PO SCH (05:59)
--- NOTE | 2024-11-30 06:42 | ECG ---
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
[2024-11-30 06:45] LABS: Basophils # (auto) 0.1 10 ^3/uL (0-0.2); Basophils % (auto) 0.5 % (0.0-2.0); Eosinophils # (auto) 0.2 10 ^3/uL (0-0.8); Eosinophils % (auto) 1.4 % (0.0-7.0); Hematocrit 31.3 % (41.0-53.0); Hemoglobin 10.2 g/dL (13.5-17.5); Lymphocytes # (auto) 0.6 10 ^3/uL (0.4-5.4); Lymphocytes % (auto) 4.8 % (10.0-50.0); Mean Corpuscular Hgb Conc. 32.6 g/dL (32.0-36.0); Monocytes # (auto) 0.8 10 ^3/uL (0-1.3); Neutrophils # (auto) 11.3 10 ^3/uL (1.6-8.6); Neutrophils % (auto) 87.3 % (37.0-80.0); Platelet Count (auto) 297 10^3/uL (140-450); Red Blood Cells 3.64 10^6/uL (4.5-5.90); White Blood Cell 12.9 10^3/uL (4.4-10.8)
[2024-11-30 06:50] LABS: Alanine Aminotransferase 20 U/L (7-40); Albumin 3.8 g/dL (3.2-4.8); Alkaline Phosphatase 67 U/L (46-116); Anion Gap 8 (5-15); Aspartate Aminotransferase 15 U/L (13-40); BUN/Creatinine Ratio 16.9 (10.0-20.0); Calcium 9.9 mg/dL (8.7-10.4); Carbon Dioxide 28 mmol/L (20-31); Chloride 102 mmol/L (98-107); Potassium 4.6 mmol/L (3.5-5.1); Sodium 138 mmol/L (136-145); Total Protein 6.5 g/dL (5.7-8.2)
[2024-11-30 07:02] LABS: Bilirubin, Total 0.3 mg/dL (0.2-1.0); Blood Urea Nitrogen 42 mg/dL (9-23); Glucose 72 mg/dL (74-106)
[2024-11-30] MEDS: DEXTROSE (50%) 50ML SYRG IV PRN (08:19)
[2024-11-30] MEDS: FINASTERIDE 5 MG TAB PO SCH (09:44)
[2024-11-30] MEDS: AMIODARONE HCL 200 MG TAB PO SCH (09:45)
[2024-11-30] MEDS: ASPirin 81 mg TAB PO SCH (09:45)
[2024-11-30] MEDS: OMEPRAZOLE-SOD BICARB 20 MG POWDER PO SCH (12:16)
[2024-11-30] MEDS ORDERED: DEXTROSE (50%) 50ML SYRG IV PRN (13:00)
--- NOTE | 2024-11-30 13:58 | DVH ---
ULTRASOUND OF SCROTUM AND CONTENTS. INDICATION: scrotal swelling COMPARISON: None TECHNIQUE: Multiple real-time grayscale sonographic and color and duplex Doppler images of the scrotu m and its contents were obtained. FINDINGS: The right testicle measures 4 cm. The left testicle measures 3 cm. Both testicles demonstrate homogeneous echotexture without evidence of focal lesions. The right epididymal head measures 1.2 cm. The left epididymal head measures 2.3 cm. Subsequent color and duplex Doppler interrogation of the testes demonstrated symmetric normal vascula r flow to both testicles. Increased vascular flow to the left testicle compared to the right. IMPRESSION: 1. Diffusely thickened scrotal wall which could represent cellulitis. 2. Left testicular orchitis.
--- NOTE | 2024-11-30 14:36 | DVHPN2 ---
Subjective Night splint noted. Patient feeling little better. 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 Medications Current Medications Medications Dose Ordered Sig/Staci Route Start Time Stop Time Status Last Admin Dose Admin Acetaminophen/ Hydrocodone Bitart 1 tab Q4HP PRN PO 11/29/24 16:15 Ondansetron HCl 4 mg Q4HP PRN IV 11/29/24 16:15 Acetaminophen 650 mg Q6HP PRN PO 11/29/24 16:15 11/29/24 16:25 650 MG Morphine Sulfate 2 mg Q4HPRN PRN IV 11/29/24 16:15 Nitroglycerin 0.4 mg Q5MINP PRN SL 11/29/24 16:15 Morphine Sulfate 2 mg Q30M PRN IV 11/29/24 16:15 Furosemide 40 mg BIDD IV 11/29/24 16:15 11/30/24 05:59 40 MG Amiodarone HCl 200 mg DAILY PO 11/30/24 10:00 11/30/24 09:45 200 MG Aspirin 81 mg DAILY PO 11/30/24 10:00 11/30/24 09:45 81 MG Finasteride 5 mg DAILY PO 11/30/24 10:00 11/30/24 09:44 5 MG Levothyroxine Sodium 100 mcg QAM PO 11/30/24 07:00 11/30/24 05:59 100 MCG Tamsulosin HCl 0.4 mg QPM PO 11/29/24 18:00 11/29/24 19:27 0.4 MG Atorvastatin Calcium 40 mg HS PO 11/29/24 22:00 11/29/24 23:34 40 MG Doxazosin Mesylate 8 mg HS PO 11/29/24 22:00 2/4/25 23:33 8 MG Patient Own Medication 1 tab QPM PO 11/30/24 18:00 Patient Own Medication 20 mg HS PO 11/29/24 22:00 Omeprazole 40 mg DAILY PO 11/30/24 10:00 11/30/24 12:16 40 MG Diagnostic Test (Pha) 1 strip ACHS 11/30/24 17:00 Insulin Human Regular ACHS SC 11/30/24 17:00 Dextrose 50 ml UD PRN IV 11/30/24 13:00 Laboratory Results Laboratory Tests 11/30/24 06:07 Chemistry Test 11/30/24 06:07 Albumin 3.8 g/dL (3.2-4.8) Calcium Level 9.9 mg/dL (8.7-10.4) Total Protein 6.5 g/dL (5.7-8.2) LFT Test 11/30/24 06:07 Alanine Aminotransferase (ALT) 20 U/L (7-40) Alkaline Phosphatase 67 U/L (46-116) Aspartate Amino Transferase (AST) 15 U/L (13-40) Total Bilirubin 0.3 mg/dL (0.2-1.0) HgA1c, TSH Test 11/30/24 06:07 Hemoglobin A1c 7.3 % A1C (<5.7) H Assessment/Plan Assessment/Plan 73-year-old male with a known history of congestive heart failure diastolic dysfunction, status post pacemaker placement, coronary artery disease status post PCI, hypertension, insulin-dependent diabetes mellitus type 2, peripheral neuropathy, BPH, hypothyroidism who initially presented to the hospital with shortness of breaths chest pain has been as scrotal swelling. Patient was seen by Nephrology and was sent to ER found to have 1. Acute on chronic congestive heart failure exacerbation with a likely diastolic dysfunction 2. Bilateral leg swelling and scrotal swelling secondary to acute CHF exacerbation 3. Status post pacemaker placement 4. Insulin-dependent diabetes mellitus type 2 5. Peripheral neuropathy 6. BPH 8. Hypothyroidism 9. Acute kidney injury with underlying CKD. -IV diuretics, resume home medication, 2D echo cardiology consultation. -nephrology consultation. Hold benazepril. -physical therapy evaluation and treatment, social service assistant e consultation for home health home safety evaluation. Plan discussed with: Patient My Orders Orders - ALDEN RENTERIA MD Procedure Category Date Status Time Admit ADMIT 11/29/24 Transmitted 16:05 Code Status CODE 11/29/24 Transmitted 16:05 Renal DIET 11/29/24 Transmitted Standard(2gna,3gk,Lopho) Dinner Hydrocodone-Acet PHA 11/29/24 In Process 5/325mg Tab ([place] 16:15 Ondansetron Hcl PHA 11/29/24 In Process (Zofran) 16:15 Pt Request For Service PT 11/29/24 Logged 16:05 Condition: Fair ALEXI 11/29/24 In Process 16:05 Acetaminophen Tablet PHA 11/29/24 In Process (Tylenol Tablet) 16:15 Morphine Sulfate PHA 11/29/24 In Process Injection 16:15 Nitroglycerin PHA 11/29/24 In Process Sublingual (Ntrostat 16:15 Morphine Sulfate PHA 11/29/24 In Process Injection 16:15 Stat Ekg For Chest ALEXI 11/29/24 In Process Pain 16:05 Notify Md Of Changes ALEXI 11/29/24 In Process From Base 16:05 Steam Tank Operator For ALEXI 11/29/24 In Process 24 Hours 16:05 Emergency Dysrhythmia ALEXI 11/29/24 In Process Protocol 16:05 Rhythm Strips Once ALEXI 11/29/24 In Process Every Shift 16:05 Oxygen By Nasal RT 11/29/24 Transmitted Cannula 16:05 Furosemide Injection PHA 11/29/24 In Process (Lasix Injection) 16:15 Amiodarone Tablet PHA 11/30/24 In Process (Cordarone Tablet) 10:00 Aspirin Tablet PHA 11/30/24 In Process 10:00 Finasteride Tablet PHA 11/30/24 In Process (Proscar Tablet) 10:00 Levothyroxine Tablet PHA 11/30/24 In Process (Synthroid Tablet) 07:00 Tamsulosin PHA 11/29/24 In Process Hydrochloride (Flomax) 18:00 Atorvastatin (Lipitor) PHA 11/29/24 In Process 22:00 Doxazosin Mesyl PHA 11/29/24 In Process Tablet (Cardura 22:00 (Nf) Fenofibrate PHA 11/30/24 In Process 18:00 (Nf) Nortriptyline PHA 11/29/24 In Process Hcl (Nortriptyline Hy 22:00 Omeprazole-Sodium PHA 11/30/24 In Process Bicarbonate (Omeprazol 10:00 Testicular Ultrasound US 11/30/24 Resulted 12:46 Glucose Blood PHA 11/30/24 In Process (Accu-Chek Comfort 17:00 Insulin R (Human) PHA 11/30/24 In Process (Insulin R) 17:00 Dextrose 50% Syringe PHA 11/30/24 In Process 13:00 Jock Strap Support ORDERS 11/30/24 Transmitted 12:46 * Director Of Corporate Sponsorships CONS 11/30/24 Verified Consult Date of Service: Nov 30, 2024 Billing Provider: ALDEN RENTERIA MD Common Visit Codes: NOT BILLABLE ALDEN RENTERIA MD Nov 30, 2024 14:36
--- NOTE | 2024-11-30 15:39 | DVHSR ---
APPROVED REPORT EXAM: Two-dimensional and M-mode echocardiogram with Doppler and color Doppler. Blood Pressure: 105/57 mmHg INDICATION Heart Failure RISK FACTORS Height: 5'11", Weight: 209 DIMENSIONS LVDd5.8 (3.8-5.7cm)LA (2D)4.9 (1.9-4.0cm)Aortic Root3.3 (2.0-3.7cm) LVDs4.7 (2.5-4.0cm)LA (MM) (1.9-4.0cm)Aortic Cusp Exc1.9 (1.5-2.0cm) EF (%) 39.0 (55-70%)Rt. Atrium4.6 (1.9-4.0cm)Asc. Aorta3.1 cm IVSd1.2 (0.7-1.1cm)RV (D)4.6 (1.8-2.4cm) PWd1.0 (0.7-1.1cm) Mitral Valve MitralMitral Stenosis E wave1.14m/sMV Mean GR.mmHg E/A ratio0.02D MVAcm2 Aortic Valve Aortic ValveAortic Stenosis V10.71m/Manoj Mean GR.4mmHg V21.25m/Manoj Peak GR.6mmHg LVOT Diameter2.2 (1.8-2.4cm)Doppler AVA2.16cm2 2D AVA2.31cm2 Pulmonic Valve V20.94m/s Tricuspid Valve TR Velocity2.59m/s [id number] Other Information Quality : Technically LimitedRhythm : Technically limited study due to body habitus. Conclusion Technically good study. Sinus rhythm. Biatrial enlargement. Aortic root enlargement. Concentric LVH. Thickening and sclerosis of the aortic leaflets. Mild mitral annular calcification. EF of 35-40% with global hypokinesis. Moderate mitral insufficiency. [id number] tricuspid insufficiency. Pacing lead noted in RV apex. No pericardial effusion masses or vegetations.
[2024-11-30] MEDS: ACCU-CHEK COMFORT CURVE STRIP VI SCH (17:48)
[2024-11-30] MEDS: InsuLIN REG 1unit/0.01ml Soln (100units/ml) SC SCH (17:53)
[2024-12-01] VITALS (8 sets, daily range): BP systolic 105–123; BP diastolic 57–71; PULSE 75–98; RESP 17–20; TEMP 97.4–98.4; O2SAT 82–99
[2024-12-01] MEDS: levoFLOXacin 500 MG TAB PO ONE (14:15)
--- NOTE | 2024-12-01 15:05 | DVHPN2 ---
Subjective Overnight and meds noted. Patient is was complaining of scrotal pain, ultrasound scrotal shows evidence of possibly cellulitis/orchitis. Reviewed: Care Plan Changes from previous H/P or p: No Changes Objective Vitals Vital Signs Date Time Temp Pulse Resp B/P (MAP) Pulse Ox O2 Delivery O2 Flow Rate FiO2 12/01/24 13:00 98.4 81 17 123/68 (86) 96 98.4 11/30/24 20:00 Nasal Cannula* 2 28 Intake/Output Intake and Output 12/01/24 07:00 Intake Total 1400 ml Output Total 575 ml Balance 825 ml Intake Oral 1400 ml Output Urine Total 575 ml # Voids 4 # Bowel Movements 4 Exam HEENT pupils are reactive Neck is supple CV is S1-S2 regular rate and rhythm Respiratory diminished BS at bases with basilar crackles GI positive bowel sound Extremity 1+ 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 Medications Current Medications Medications Dose Ordered Sig/Staci Route Start Time Stop Time Status Last Admin Dose Admin Acetaminophen/ Hydrocodone Bitart 1 tab Q4HP PRN PO 11/29/24 16:15 Ondansetron HCl 4 mg Q4HP PRN IV 11/29/24 16:15 Acetaminophen 650 mg Q6HP PRN PO 11/29/24 16:15 12/01/24 12:28 650 MG Morphine Sulfate 2 mg Q4HPRN PRN IV 11/29/24 16:15 Nitroglycerin 0.4 mg Q5MINP PRN SL 11/29/24 16:15 Morphine Sulfate 2 mg Q30M PRN IV 11/29/24 16:15 Furosemide 40 mg BIDD IV 11/29/24 16:15 12/01/24 06:36 40 MG Amiodarone HCl 200 mg DAILY PO 11/30/24 10:00 12/01/24 10:20 200 MG Aspirin 81 mg DAILY PO 11/30/24 10:00 12/01/24 12:02 81 MG Finasteride 5 mg DAILY PO 11/30/24 10:00 12/01/24 10:21 5 MG Levothyroxine Sodium 100 mcg QAM PO 11/30/24 07:00 12/01/24 06:34 100 MCG Tamsulosin HCl 0.4 mg QPM PO 11/29/24 18:00 11/30/24 17:48 0.4 MG Atorvastatin Calcium 40 mg HS PO 11/29/24 22:00 11/30/24 22:04 40 MG Doxazosin Mesylate 8 mg HS PO 11/29/24 22:00 11/30/24 22:05 8 MG Patient Own Medication 1 tab QPM PO 11/30/24 18:00 Patient Own Medication 20 mg HS PO 11/29/24 22:00 Omeprazole 40 mg DAILY PO 11/30/24 10:00 12/01/24 10:20 40 MG Diagnostic Test (Pha) 1 strip ACHS 11/30/24 17:00 12/01/24 11:30 1 STRIP Insulin Human Regular ACHS SC 11/30/24 17:00 12/01/24 11:30 3 UNITS Dextrose 50 ml UD PRN IV 11/30/24 13:00 Levofloxacin 500 mg DAILY PO 12/02/24 10:00 UNV Laboratory Results Laboratory Tests 11/30/24 06:07 Assessment/Plan Assessment/Plan 73-year-old male with a known history of congestive heart failure diastolic dysfunction, status post pacemaker placement, coronary artery disease status post PCI, hypertension, insulin-dependent diabetes mellitus type 2, peripheral neuropathy, BPH, hypothyroidism who initially presented to the hospital with shortness of breaths chest pain has been as scrotal swelling. Patient was seen by Nephrology and was sent to ER found to have 1. Acute on chronic congestive heart failure exacerbation with a likely diastolic dysfunction 2. Bilateral leg swelling secondary to acute CHF exacerbation 3. Status post pacemaker placement 4. Insulin-dependent diabetes mellitus type 2 5. Scrotal cellulitis/orchitis 6. BPH 8. Hypothyroidism 9. Acute kidney injury with underlying CKD. -add Levaquin for orchitis, -IV diuretics, resume home medication, 2D echo cardiology consultation. -nephrology consultation. Hold benazepril. -physical therapy evaluation and treatment, professor of social work e consultation for home health home safety evaluation. Plan discussed with: Patient, Spouse My Orders Orders - ALDEN RENTERIA MD Procedure Category Date Status Time Levofloxacin Tablet PHA 12/02/24 Logged (Levaquin Tablet) 10:00 Levofloxacin Tablet PHA 12/01/24 Logged (Levaquin Tablet) 14:15 Date of Service: Dec 01, 2024 Billing Provider: ALDEN RENTERIA MD Common Visit Codes: NOT BILLABLE ALDEN RENTERIA MD Dec 01, 2024 15:05
[2024-12-02] VITALS (8 sets, daily range): BP systolic 108–133; BP diastolic 59–83; PULSE 72–98; RESP 17–20; TEMP 98–98.4; O2SAT 94–99
[2024-12-02 08:01] LABS: Basophils # (auto) 0 10 ^3/uL (0-0.2); Basophils % (auto) 0.4 % (0.0-2.0); Eosinophils # (auto) 0.3 10 ^3/uL (0-0.8); Eosinophils % (auto) 3.1 % (0.0-7.0); Hematocrit 35.2 % (41.0-53.0); Hemoglobin 11.4 g/dL (13.5-17.5); Lymphocytes # (auto) 1.7 10 ^3/uL (0.4-5.4); Lymphocytes % (auto) 17.9 % (10.0-50.0); Mean Corpuscular Hgb Conc. 32.4 g/dL (32.0-36.0); Mean Corpuscular Volume 86.4 fL (80.0-100.0); Monocytes # (auto) 0.6 10 ^3/uL (0-1.3); Monocytes % (auto) 6.8 % (0.0-12.0); Neutrophils # (auto) 6.7 10 ^3/uL (1.6-8.6); Neutrophils % (auto) 71.8 % (37.0-80.0); Platelet Count (auto) 334 10^3/uL (140-450); Red Blood Cells 4.07 10^6/uL (4.5-5.90); Red Cell Distribution Width 19.1 % (11.8-14.3); White Blood Cell 9.3 10^3/uL (4.4-10.8)
[2024-12-02 08:13] LABS: Anion Gap 8 (5-15); Potassium 3.9 mmol/L (3.5-5.1); Sodium 140 mmol/L (136-145)
[2024-12-02 08:14] LABS: Calcium 10.2 mg/dL (8.7-10.4)
[2024-12-02 08:15] LABS: Carbon Dioxide 34 mmol/L (20-31); Chloride 98 mmol/L (98-107)
[2024-12-02 08:19] LABS: BUN/Creatinine Ratio 15.2 (10.0-20.0); Glucose 84 mg/dL (74-106)
[2024-12-02 08:21] LABS: Blood Urea Nitrogen 38 mg/dL (9-23)
[2024-12-02] MEDS ORDERED: levoFLOXacin 500 MG TAB PO SCH (10:00)
[2024-12-02] MEDS: levoFLOXacin 250 MG TAB PO SCH (10:58)
--- NOTE | 2024-12-02 18:30 | DVHPN2 ---
Progress Note - Dictate Date Seen: Dec 02, 2024 Medical Necessity Reason Pt with a Central, PICC or Fol: No Subjective Leg swelling has improved. Scrotal edema still persistent at but slightly better. Improved erythema. Ambulating with a walker. Family at bedside. vital signs Vital Sign Date Time Temp Pulse Resp B/P (MAP) Pulse Ox O2 Delivery O2 Flow Rate FiO2 12/02/24 18:07 129/75 12/02/24 17:06 98.1 92 18 99 98.1 12/02/24 08:00 Nasal Cannula* 2 28 Total Intake and Output 12/01/24 12/01/24 12/02/24 15:00 23:00 07:00 Intake Total 850 ml 820 ml Output Total 600 ml Balance 850 ml 220 ml medications Current Medications Medications Dose Ordered Sig/Staci Route Start Time Stop Time Status Last Admin Dose Admin Acetaminophen/ Hydrocodone Bitart 1 tab Q4HP PRN PO 11/29/24 16:15 Ondansetron HCl 4 mg Q4HP PRN IV 11/29/24 16:15 Acetaminophen 650 mg Q6HP PRN PO 11/29/24 16:15 12/02/24 11:10 650 MG Morphine Sulfate 2 mg Q4HPRN PRN IV 11/29/24 16:15 Nitroglycerin 0.4 mg Q5MINP PRN SL 11/29/24 16:15 Morphine Sulfate 2 mg Q30M PRN IV 11/29/24 16:15 Furosemide 40 mg BIDD IV 11/29/24 16:15 12/02/24 18:07 40 MG Amiodarone HCl 200 mg DAILY PO 11/30/24 10:00 12/02/24 10:58 200 MG Aspirin 81 mg DAILY PO 11/30/24 10:00 12/02/24 10:59 81 MG Finasteride 5 mg DAILY PO 11/30/24 10:00 12/02/24 10:59 5 MG Levothyroxine Sodium 100 mcg QAM PO 11/30/24 07:00 12/02/24 06:00 100 MCG Tamsulosin HCl 0.4 mg QPM PO 11/29/24 18:00 12/02/24 18:06 0.4 MG Atorvastatin Calcium 40 mg HS PO 11/29/24 22:00 12/01/24 22:26 40 MG Doxazosin Mesylate 8 mg HS PO 11/29/24 22:00 12/01/24 22:25 8 MG Patient Own Medication 1 tab QPM PO 11/30/24 18:00 Patient Own Medication 20 mg HS PO 11/29/24 22:00 Diagnostic Test (Pha) 1 strip ACHS 11/30/24 17:00 12/02/24 17:00 1 STRIP Insulin Human Regular ACHS SC 11/30/24 17:00 12/02/24 17:00 4 UNITS Dextrose 50 ml UD PRN IV 11/30/24 13:00 Levofloxacin 250 mg DAILY PO 12/02/24 10:00 12/02/24 10:58 250 MG Pantoprazole Sodium 40 mg DAILY@0600 PO 12/03/24 06:00 objective Sitting at the edge of the bed without complaints. Alert awake oriented x3. HEENT neck supple no JVD. Heart regular rate and rhythm S1-S2. Lungs fair air movement without rales wheezes. Abdomen soft nontender positive bowel sounds. Scrotal swelling is noted but less erythema. No pain. Still has 1+ edema in the lower extremities. laboratory and microbiology Laboratory Tests 12/02/24 07:21 Test 12/02/24 07:21 Range/Units Serum Glucose 84 74-106 mg/dL Assessment/Plan Scrotal elevation when in bed with a towel. Continue current IV diuresis overnight. If he remains stable consider discharge home tomorrow. Discussed with the patient and nurse at bedside regarding care plan. Problems(with codes): (1) CHF (congestive heart failure) (2) CKD (chronic kidney disease) stage 3, GFR 30-59 ml/min (3) Acute kidney injury (nontraumatic) (4) Diastolic heart failure Plan discussed with: Patient, Spouse, Other KEIRA OVALLE MD Dec 02, 2024 18:30
[2024-12-03 05:00] VITALS: BP 139/76; PULSE 78; RESP 24; TEMP 98.1; O2SAT 97
[2024-12-03] MEDS: PANTOPRAZOLE 40 MG TAB PO SCH (05:40)
[2024-12-03] MEDS: metOLazone 5 MG TAB PO SCH (05:40)
[2024-12-03 08:10] VITALS: PULSE 85
[2024-12-03 09:50] VITALS: BP_SYST 119; BP_SYST 126; BP_DIAS 58; BP_DIAS 79; PULSE 76; PULSE 81; RESP 17; RESP 18; TEMP 97.8; TEMP 98.4; O2SAT 98
[2024-12-03 13:00] VITALS: BP 135/77; PULSE 88; RESP 17; TEMP 98.4; O2SAT 99
[2024-12-03] MEDS ORDERED: DOXY100C79 PO (14:16)
--- NOTE | 2024-12-03 14:17 | DVHDS2 ---
Discharge Summary Date of Admission Nov 29, 2024 at 16:05 Date of Discharge: Dec 03, 2024 Labs/Diagnostic Data: Laboratory Results Test 12/03/24 11:13 12/02/24 07:21 11/30/24 06:07 11/29/24 13:46 POC Glucose 181 mg/dl (70-106) White Blood Count 9.3 10^3/uL (4.4-10.8) Red Blood Count 4.07 10^6/uL (4.5-5.90) Hemoglobin 11.4 g/dL (13.5-17.5) Hematocrit 35.2 % (41.0-53.0) Mean Corpuscular Volume 86.4 fL (80.0-100.0) Mean Corpuscular Hemoglobin 28.0 pg (28.0-32.0) Mean Corpuscular Hemoglobin Concent 32.4 g/dL (32.0-36.0) Red Cell Distribution Width 19.1 % (11.8-14.3) Platelet Count 334 10^3/uL (140-450) Mean Platelet Volume 6.9 fL (6.9-10.8) Neutrophils (%) (Auto) 71.8 % (37.0-80.0) Lymphocytes (%) (Auto) 17.9 % (10.0-50.0) Monocytes (%) (Auto) 6.8 % (0.0-12.0) Eosinophils (%) (Auto) 3.1 % (0.0-7.0) Basophils (%) (Auto) 0.4 % (0.0-2.0) Neutrophils # (Auto) 6.7 10 ^3/uL (1.6-8.6) Lymphocytes # (Auto) 1.7 10 ^3/uL (0.4-5.4) Monocytes # (Auto) 0.6 10 ^3/uL (0-1.3) Eosinophils # (Auto) 0.3 10 ^3/uL (0-0.8) Basophils # (Auto) 0 10 ^3/uL (0-0.2) Nucleated Red Blood Cells 0.0 % Sodium Level 140 mmol/L (136-145) Potassium Level 3.9 mmol/L (3.5-5.1) Chloride Level 98 mmol/L (98-107) Carbon Dioxide Level 34 mmol/L (20-31) Anion Gap 8 (5-15) Blood Urea Nitrogen 38 mg/dL (9-23) Creatinine 2.50 mg/dL (0.700-1.30) Glomerular Filtration Rate Calc 27 mL/min (>90) BUN/Creatinine Ratio 15.2 (10.0-20.0) Serum Glucose 84 mg/dL (74-106) Calcium Level 10.2 mg/dL (8.7-10.4) B-Type Natriuretic Peptide 1311.92 pg/mL (0-100) Hemoglobin A1c 7.3 % A1C (<5.7) Total Bilirubin 0.3 mg/dL (0.2-1.0) Aspartate Amino Transferase (AST) 15 U/L (13-40) Alanine Aminotransferase (ALT) 20 U/L (7-40) Alkaline Phosphatase 67 U/L (46-116) Total Protein 6.5 g/dL (5.7-8.2) Albumin 3.8 g/dL (3.2-4.8) Troponin I High Sensitivity 20 ng/L (</=54) Other Laboratory Tests 12/02/24 07:21 Brief Hx & Hospital Course: 73-year-old male with a known history of congestive heart failure diastolic dysfunction, status post pacemaker placement, coronary artery disease status post PCI, hypertension, insulin-dependent diabetes mellitus type 2, peripheral neuropathy, BPH, hypothyroidism who initially presented to the hospital with shortness of breaths chest pain has been as scrotal swelling. Patient was seen by Nephrology and was sent to ER. Patient and patient was told me that he has leg swelling which is worsening for last three days along with dyspnea on minimal exertion. Also complaining of intermittent chest pain as well. Patient was denying any fever chills cough or phlegm. He is admitted and underwent evaluations for his leg swelling and shortness for breath. Patient received IV diuretics while in the hospital. Patient had achieved adequate diuresis. His scrotal edema erythema has improved. Patient empirically treated for mild scrotal cellulitis with antibiotics. Patient's echocardiogram showed a low ejection fraction. I have discussed this with the patient as well as family members at bedside and advised that patient is end- stage heart failure and that he needs to continue IV diuretics as he is prescribed and limit his oral fluid intake to 1200 mL per 24 hours. Patient is advised to elevate his legs when in bed. Patient is otherwise advised to avoid salty food as well. Otherwise while in the hospital overall his symptoms have improved and needs feeling better. Leg swelling erythema as well as anasarca has improved. Kidney function is stable. Therefore it is felt he could be safely discharged home with outpatient follow up with the PCP and returns processor as mentioned. I have also told the patient as well as family members today at bedside that he needs to have his blood tests rechecked for his kidney function with PCP as well. Patient and family verbalized understanding of his hospital diagnosis, treatment he received, discharge medications, discharge instructions and agree with the discharge follow-up plan of care. Operations or Procedures EXAM: Two-dimensional and M-mode echocardiogram with Doppler and color Doppler. Blood Pressure: 105/57 mmHg INDICATION Heart Failure RISK FACTORS Height: 5'11", Weight: 209 DIMENSIONS LVDd 5.8 (3.8-5.7cm) LA (2D) 4.9 (1.9-4.0cm) Aortic Root 3.3 (2.0- 3.7cm) LVDs 4.7 (2.5-4.0cm) LA (MM) (1.9-4.0cm) Aortic Cusp Exc 1.9 (1.5- 2.0cm) EF (%) 39.0 (55-70%) Rt. Atrium 4.6 (1.9-4.0cm) Asc. Aorta 3.1 cm IVSd 1.2 (0.7-1.1cm) RV (D) 4.6 (1.8-2.4cm) PWd 1.0 (0.7-1.1cm) Mitral Valve Mitral Mitral Stenosis E wave 1.14m/s MV Mean GR. mmHg E/A ratio 0.0 2D MVA cm2 Aortic Valve Aortic Valve Aortic Stenosis V1 0.71m/s AO Mean GR. 4mmHg V2 1.25m/s AO Peak GR. 6mmHg LVOT Diameter 2.2 (1.8-2.4cm) Doppler GABBIE 2.16cm2 2D GABBIE 2.31cm2 Pulmonic Valve V2 0.94m/s Tricuspid Valve TR Velocity 2.59m/s RVSP 35mmHg Other Information Quality : Technically Limited Rhythm : Technically limited study due to body habitus. Conclusion Technically good study. Sinus rhythm. Biatrial enlargement. Aortic root enlargement. Concentric LVH. Thickening and sclerosis of the aortic leaflets. Mild mitral annular calcification. EF of 35-40% with global hypokinesis. Moderate mitral insufficiency. Rhtvhoei-tr-oymwok tricuspid insufficiency. Pacing lead noted in RV apex. No pericardial effusion masses or vegetations. SIGNED BY: CORAZON VICKERS Sr., MD SIGNED DATE/TIME: 11/30/24 6277 Condition at Discharge: Stable Final Diagnosis/Problems List Acute congestive heart failure with diastolic dysfunction, anasarca/scrotal edema Discharge Disposition: Home Discharge Instruct/Medications Diet: Consistent carbohydrate, Cardiac 2g Na,low cholest Diet comment: To limit your oral fluid intake to 1200 mL per 24 hours due to heart failure Activity: No Restrictions, As Tolerated Follow Up/Referral: Primary care physician next week to repeat blood test for kidney function and returns processor after two weeks for heart failure management Medications: Home medications as you were taking and as per discharge medication list/prescriptions as prescribed New Medications: Doxycycline (Monohydrate) (Doxycycline) 100 Mg Cap 100 MG PO BID, #14 CAP Continued Medications: Amiodarone Hcl (Amiodarone Hcl) 200 Mg Tab 200 MG PO DAILY, #30 MG Aspirin (Asa) 81 Mg Ch 81 MG PO DAILY Atorvastatin Calcium (Atorvastatin Calcium) 40 Mg Tab 1 TAB PO QPM, #90 TAB 3 Refills Carvedilol (Carvedilol) 3.125 Mg Tab 1 TAB PO DAILY for 90 Days, #90 TAKE 1 TABLET BY MOUTH DAILY. MAX DAILY DOSE: 1 TABLET Clopidogrel Bisulfate (Clopidogrel) 75 Mg Tab 1 TAB PO DAILY for 90 Days, #90 Doxazosin Mesylate (Doxazosin Mesylate) 4 Mg Tab 8 MG PO HS for 30 Days, MG Empagliflozin (Jardiance) 10 Mg Tab 1 TAB PO DAILY for 90 Days, #90 Fenofibrate (Fenofibrate) 160 Mg Tab 1 TAB PO DAILY, #30 TAB 5 Refills Finasteride (Finasteride) 5 Mg Tab 1 TAB PO DAILY, #30 TAB 11 Refills Furosemide (Furosemide) 40 Mg Tab 1 TAB PO DAILY for 90 Days, #90 Gabapentin (Gabapentin) 300 Mg Cap 1 CAP PO TID for 90 Days, #270 Insulin Isophane & Reg (Human) (Humulin 70/30 (70-30) 100 Unit/ml) 1 Units/0.01 Ml Inj 90 UNITS SC BEFORE BREAKFAST for 70 Days, #120 Insulin Isophane & Reg (Human) (Humulin 70/30 (70-30) 100 Unit/ml) 1 Units/0.01 Ml Inj 80 UNITS SC BEFORE DINNER for 70 Days, #120 Levothyroxine Sodium (Levothyroxine Sodium) 112 Mcg Tab 1 TAB PO DAILY for 90 Days, #90 Nortriptyline HCl (Nortriptyline Hydrochlori) 10 Mg/5 Ml Sonali 20 MG PO HS Omeprazole (Omeprazole Dr) 40 Mg Cap 1 CAP PO DAILY for 90 Days, #90 Tamsulosin Hcl (Flomax) 0.4 Mg Cap 0.4 MG PO QPM, #30 CAP Discontinued Medications: Amlodipine Besylate (Amlodipine Besylate) 5 Mg Tab 1 TAB PO DAILY for 90 Days, #90 Potassium Chloride (Potassium Chloride ER) 20 Meq Tab 1 TAB PO DAILY for 90 Days, #90 Discharge Statement: "Patient was advised to return to the ER or call 911 if any headaches, dizziness, shortness of breath, chest pain, abdominal pain, bleeding, fevers, or worsening of medical condition. Patient was counseled about treatment plan, medications, possible side effects, patientverbalized understanding. All questions were answered to the best of my ability. This discharge took greater then 30 minutes in planning, reviewing documentation, counseling the patient, and discussing with other team members." ASSESSMENT ASSESSMENT Assessment Acute congestive heart failure with diastolic dysfunction, anasarca/scrotal edema KEIRA OVALLE MD Dec 03, 2024 14:17
[2024-12-03 16:40] VITALS: BP 137/78; PULSE 89; RESP 17; TEMP 98.3; O2SAT 99
== END 2024-12-03 16:30 | disposition home health service (06) | DRG 291 ==
LOC: ER 10:13 → TELE 16:05 → TELE-EAST 22:20
PROVIDERS: ADMIT Internal Medicine; ATTEND Internal Medicine
DX: I13.0 Hypertensive heart and chronic kidney disease with heart failure and stage 1 through stage 4 chronic kidney disease, or unspecified chronic kidney disease (principal); I50.33 Acute on chronic diastolic (congestive) heart failure; E03.9 Hypothyroidism, unspecified; E11.42 Type 2 diabetes mellitus with diabetic polyneuropathy; N39.43 Post-void dribbling; E11.22 Type 2 diabetes mellitus with diabetic chronic kidney disease; N18.30 Chronic kidney disease, stage 3 unspecified; N40.1 Benign prostatic hyperplasia with lower urinary tract symptoms; N45.2 Orchitis; I50.84 End stage heart failure; I25.10 Atherosclerotic heart disease of native coronary artery without angina pectoris; Z79.4 Long term (current) use of insulin; Z86.73 Personal history of transient ischemic attack (TIA), and cerebral infarction without residual deficits; Z98.61 Coronary angioplasty status; Z95.0 Presence of cardiac pacemaker
CPT/HCPCS: 36415; 71046; 76870; 80048; 80053; 82962; 83036; 83880; 84484; 85025; 93005; 93306; 97116; 97163; 97530; G0378; J1815